=== PATIENT | male | born 1980 | race Caucasian/White ===

== ENCOUNTER 2023-11-02 08:43 | Emergency (ER) | payer OTHER, SELFPAY ==
--- NOTE | ~2023-11-02 | XR_ITS ---
EXAMINATION: XR elbow RT min 3V DATE: 11/02/2023 09:19 INDICATION: Right elbow injury and pain. TECHNIQUE: 4 views of right elbow were obtained. COMPARISON: None. FINDINGS: Bone alignment is normal. No fracture. Joint spaces are normal. No elbow joint effusion. IMPRESSION: 1. No fracture. Reviewed, dictated and finalized at location A. IMPRESSION: 1. No fracture.
--- NOTE | ~2023-11-02 | XR_ITS ---
XR shoulder RT min 2V 11/02/2023 09:19 INDICATION: Right shoulder pain PROCEDURE: 4 views right shoulder COMPARISON: No prior studies for comparison. FINDINGS: Fracture, dislocation or subluxation is not identified. The soft tissues appear within norm al limits. No foreign bodies are identified. IMPRESSION: 1: NO ACUTE BONE OR JOINT ABNORMALITY IDENTIFIED. Reviewed, dictated and finalized at location B.
[2023-11-02 08:46] VITALS: BP 160/91; PULSE 106; RESP 16; TEMP 36.4; O2SAT 98
[2023-11-02] MEDS: KETOROLAC 30 MG/ML VIAL (*BKC) IM (09:00)
--- NOTE | 2023-11-02 09:34 | ED.UPPEXIN ---
HPI - Extremity Injury (Upper) General Chief Complaint: Extremity Injury, Upper Stated Complaint: R ARM INJURY WHILE AT WORK Time Seen by Provider: 11/02/23 08:50 History of Present Illness HPI narrative: Patient is a 43-year-old male who presents ER with right shoulder and elbow pain. He was trying to started chain saw when the record got stuck and jerked his arm. He has pain with movements of the elbow and shoulder. No numbness or tingling down the arm. Node pain in the wrist or hand. He maintains normal range of motion at all the joints in the right upper extremity. No swelling. Related Data Allergies Allergy/AdvReac Type Severity Reaction Status Date / Time No Known Allergies Allergy Mild Verified 11/02/23 08:51 Review of Systems Constitutional: Constitutional: Reports no additional constitutional complaints Musculoskeletal: Musculoskeletal: Denies back pain, Reports arthralgias, Denies joint swelling and Denies muscle cramps Integumentary/Breasts: Skin/Breast: Reports system reviewed and no additional complaints, except as docu Neurologic: Reports system reviewed and no additional complaints, except as documented [facility] Past Medical History Medical History (Updated 11/02/23 @ 09:38 by Rodrick Andrew MD) Diabetes Hypertension Exam Narrative: GENERAL: Well-appearing, well-nourished, and in no acute distress. HEAD: Normocephalic, atraumatic. ENT: Mucous membranes moist. CHEST: Clear to auscultation. No respiratory distress. HEART: Regular rate and rhythm. Normal peripheral pulses. EXTREMITIES: Normal range of motion. No edema. Mild tenderness right radial head. Additional tenderness anterior shoulder joint line as well as posterior right shoulder lateral to the scapula. SKIN: Warm, dry, no rash. NEURO: Alert and oriented x3. PSYCH: Normal mood and affect. Course Vital Signs Vital signs: Vital Signs Temperature 97.5 F L 11/02/23 08:46 Pulse Rate 106 H 11/02/23 08:46 Respiratory Rate 16 11/02/23 08:46 Blood Pressure 160/91 H 11/02/23 08:46 Pulse Oximetry 98 11/02/23 08:46 Oxygen Delivery Room Air 11/02/23 08:46 Temperature 97.5 F L 11/02/23 08:46 Pulse Rate 106 H 11/02/23 08:46 Respiratory Rate 16 11/02/23 08:46 Blood Pressure 160/91 H 11/02/23 08:46 Pulse Oximetry 98 11/02/23 08:46 Oxygen Delivery Room Air 11/02/23 08:46 MDM - Extremity Injury (Upper) MDM Narrative Medical decision making narrative: -Course: Resting comfortably. Given pain medication. Issues. -Co-morbidities complicating care: Diabetes, hypertension -External Chart Review: None -Hx from independent Sources: Patient -Independent interpretation of studies: No acute fracture or other process on x-rays of the right shoulder and elbow. -Interventions: Toradol 30 mg IM x1. -Shared decision making / Disposition: Recommend discharge with NSAIDs and muscle relaxers. Follow-up with PCP should symptoms persist for either PT or MRI. Patient verbalized understanding. Imaging Data Radiologist's impression: ITS Impressions Elbow X-Ray 11/02/23 09:20 IMPRESSION: 1. No fracture. Shoulder X-Ray 11/02/23 09:20 IMPRESSION: 1: NO ACUTE BONE OR JOINT ABNORMALITY IDENTIFIED. Discharge Plan Discharge Clinical Impression: Sprain of right shoulder, Elbow sprain Patient Disposition: Home, Self-Care Condition: Stable Instructions: Elbow Sprain (ED), Shoulder Sprain (ED), P.R.I.C.E. Treatment (ED) Additional Instructions: Return to the ER if you suffer a new injury, you have fever over 100.4? F, you cannot keep down food water, or you have additional concerns. Follow-up with your primary care doctor for further treatment evaluation. Prescriptions: New cyclobenzaprine 10 mg tablet 10 mg PO TID PRN (Reason: muscle spasm) Qty: 20 0RF naproxen 375 mg tablet 375 mg PO BID Qty: 14 0RF Follow-up/Referrals: Dahlia,Paul Blair MD [Prim
[2023-11-02 09:48] VITALS: BP 141/85; PULSE 102; RESP 14; TEMP 36.4; O2SAT 97
== END 2023-11-02 09:49 | disposition home or self-care (01) ==
PROVIDERS: Emergency Provider Emergency Medicine; PCP Family Medicine
DX: S43.401A Unspecified sprain of right shoulder joint, initial encounter (principal); S53.401A Unspecified sprain of right elbow, initial encounter; E11.9 Type 2 diabetes mellitus without complications; I10 Essential (primary) hypertension; X50.0XXA Overexertion from strenuous movement or load, initial encounter
CPT/HCPCS: 73030; 73080; 96372; 99284; J1885

== ENCOUNTER 2023-11-11 21:40 | Inpatient (IN) | payer OTHER, SELFPAY ==
--- NOTE | ~2023-11-11 | CT_ITS ---
EXAMINATION: CT abdomen pelvis w con DATE: 11/12/2023 01:31 INDICATION: Abdominal pain. Nausea and vomiting. TECHNIQUE: Computed tomography (CT) of the abdomen and pelvis was performed with 100 mL Omnipaque 350 intravenous contrast. Automated exposure control and iterative reconstruction technique were employe d. The dose-length product was 483.61 mGy-cm. COMPARISON: None. FINDINGS: The visualized portions of the lung bases are clear without pneumonia or pleural effusion. The heart size is normal. No pericardial effusion. There is wall thickening in the distal esophagus. The liver, gallbladder, spleen, pancreas, adrenal glands, and kidneys are normal. There are no dilate d loops of bowel. The appendix is normal. There are no pathologically enlarged lymph nodes. There is no free intraperitoneal fluid. There is severe lower lumbar spondylosis. IMPRESSION: 1. Wall thickening of the distal esophagus, consistent with esophagitis. Reviewed, dictated and finalized at location E.
--- NOTE | ~2023-11-11 | XR_ITS ---
EXAMINATION: XR chest 2V DATE: 11/12/2023 01:42 INDICATION: Shortness of breath. TECHNIQUE: Frontal and lateral views of the chest were obtained. COMPARISON: CT abdomen and pelvis 11/12/2023 FINDINGS: There is no pneumonia, pleural effusion, or pneumothorax. The heart size is normal. IMPRESSION: 1. No acute cardiopulmonary disease. Reviewed, dictated and finalized at location E.
[2023-11-11 21:53] VITALS: BP 98/69; PULSE 120; RESP 20; TEMP 36.4; O2SAT 99
--- NOTE | 2023-11-11 21:59 | ECG_ITS ---
Test Date: 2023-11-11 21:51:03 Measurements Intervals [place] Rate: 127 P: 71 [place]: 156 QRS: -68 QRSD: 104 T: 48 QT: 303 QTc: 441 Interpretive Statements SINUS TACHYCARDIA MARKED LEFT AXIS DEVIATION [QRS AXIS < -30] PATTERN CONSISTENT WITH PULMONARY DISEASE ST ELEVATION, PROBABLY EARLY REPOLARIZATION [ST ELEVATION WITH NORMALLY INFLECTED T WAVE] No previous ECG available for comparison Electronically Signed On 11-12-2023 13:43:06 CDT by Ankit Reyes M.D.
[2023-11-11 22:16] LABS: Basophils Absolute Auto 0.2 K/mm3 (0.0-0.1); Basophils Percent Auto 0.7 % (0.2-1.2); Eosinophils Percent Auto 0.2 % (0-4.4); Hematocrit 55.3 % (42.0-52.0); Hemoglobin 18.4 g/dL (14.0-18.0); Immature Granulocyte Absolute 0.67 K/mm3 (0.00-0.031); Lymphocytes Absolute Auto 2.22 K/mm3 (0.9-3.2); Lymphocytes Percent Auto 10.1 % (18.3-44.2); Mean Corpuscular HGB Conc 33.3 g/dl (32-36); Mean Corpuscular Volume 87.1 fl (80-100); Mean Platelet Volume 10.1 fl (7.4-10.4); Monocytes Absolute Auto 1.8 K/mm3 (0.1-0.6); Monocytes Percent Auto 8.2 % (2.6-8.5); Neutrophils Absolute Auto 17.2 K/mm3 (1.3-6.7); Neutrophils Percent Auto 77.8 % (45.5-73.1); Platelet Count Result 457 k/mm3 (150-375); Red Blood Count 6.35 M/mm3 (4.6-6.20); Red Cell Distribution Width 12.4 % (11.5-14.5); White Blood Count 22.1 K/mm3 (4.5-10.0)
[2023-11-11 22:23] LABS: Alanine Aminotransferase 31 U/L (6-50); Albumin Level 5.4 g/dL (3.5-5.1); Alkaline Phosphatase 91 U/L (38-126); Aspartate Amino Transferase 29 U/L (17-59); Bilirubin,Total 0.6 mg/dL (0.2-1.3); Blood Urea Nitrogen 27 mg/dL (9-20); Calcium 10.4 mg/dL (8.4-10.2); Carbon Dioxide < 5 mmol/L (22-30); Chloride 90 mmol/L (98-107); Estimated CRCL calculation 70 ml/min; Estimated Glomerular Filt Rate 60; Glucose 362 mg/dL (65-110); Lipase 102 U/L (23-300); Potassium 5.1 mmol/L (3.4-5.0); Sodium 134 mmol/L (137-145)
[2023-11-12] VITALS (18 sets, daily range): BP systolic 85–135; BP diastolic 53–73; PULSE 98–126; RESP 12–24; TEMP 36.5–36.9; O2SAT 97–100; BMI 25.7
--- NOTE | 2023-11-12 00:32 | ED.NAVMDI ---
HPI - Nausea/Vomiting/Diarrhea General Chief complaint: Nausea/Vomiting/Diarrhea <Susy Pizarro PA-C - Last Filed: 11/12/23 01:57> Stated complaint: vomiting <Susy Pizarro PA-C - Last Filed: 11/12/23 01:57> Time Seen by Provider: 11/12/23 00:13 <Susy Pizarro PA-C - Last Filed: 11/12/23 01:57> History of Present Illness HPI Narrative: 43-year-old male with a history of hyperlipidemia, diabetes and history of gastric ulcers presents to the emergency department for epigastric pain that radiates into his chest and throat since yesterday with associated nausea and vomiting. Patient states he has been vomiting looks like coffee-ground . He reports associated shortness of breath. Denies fever, dysuria hematuria, diarrhea. He denies melena or hematochezia. States he drinks 3 12 packs a week. Denies history of liver disease or esophageal varices. Denies history of alcohol withdrawal. Last drink was 10pm last night. Denies history of alcohol withdrawal. <Susy Pizarro PA-C - Last Filed: 11/12/23 01:57> Related Data Allergies/Adverse reactions: Allergies Allergy/AdvReac Type Severity Reaction Status Date / Time No Known Allergies Allergy Mild Verified 11/02/23 08:51 <Susy Pizarro PA-C - Last Filed: 11/12/23 01:57> Review of Systems Review of Systems: All systems reviewed & are unremarkable except as noted in HPI and below <Susy Pizarro PA-C - Last Filed: 11/12/23 01:57> PMFSH Past Medical History Medical History: Medical History Diabetes Hypertension <DAMEON Hawkins Last Filed: 11/12/23 01:57> Exam Narrative: GENERAL: Ill-appearing, well-nourished, and in no acute distress. HEAD: Normocephalic, atraumatic. EYES: PERRLA and EOMI. ENT: Nares clear, no rhinorrhea or epistaxis. Mucous membranes moist. NECK: Supple. CHEST: Clear to auscultation. No respiratory distress. HEART: Regular rate and rhythm. No murmur heard. Normal peripheral pulses. ABDOMEN: Quiet bowel sounds. Abdomen soft with tenderness in epigastrium. No rebound, guarding or rigidity. No CVA tenderness. EXTREMITIES: Normal range of motion. No edema. SKIN: Warm, dry, no rash. NEURO: No focal deficits. Alert and oriented x3 <Susy Pizarro PA-C - Last Filed: 11/12/23 01:57> Course ADAPTIVE PHYSICAL EDUCATOR/PA Physician Supervision I agree with midlevel documentation; I performed the medical decision making component of this evaluation. CT without acute abnormality. Admission to ICU <Ella Jara MD - Last Filed: 11/12/23 03:32> Vital Signs Vital signs: Vital Signs Temperature 97.6 F 11/11/23 21:53 Pulse Rate 120 H 11/11/23 21:53 Respiratory Rate 20 11/11/23 21:53 Blood Pressure 98/69 L 11/11/23 21:53 Pulse Oximetry 99 11/11/23 21:53 Oxygen Delivery Room Air 11/11/23 21:53 Temperature 97.6 F 11/11/23 21:53 Pulse Rate 100 11/12/23 01:16 Respiratory Rate 20 11/12/23 01:16 Blood Pressure 112/65 11/12/23 01:16 Pulse Oximetry 98 11/12/23 01:16 Oxygen Delivery Room Air 11/11/23 21:53 <Susy Pizarro PA-C - Last Filed: 11/12/23 01:57> Vital Signs Temperature 97.6 F 11/11/23 21:53 Pulse Rate 120 H 11/11/23 21:53 Respiratory Rate 20 11/11/23 21:53 Blood Pressure 98/69 L 11/11/23 21:53 Pulse Oximetry 99 11/11/23 21:53 Oxygen Delivery Room Air 11/11/23 21:53 Temperature 97.6 F 11/11/23 21:53 Pulse Rate 100 11/12/23 01:16 Respiratory Rate 20 11/12/23 01:16 Blood Pressure 112/65 11/12/23 01:16 Pulse Oximetry 98 11/12/23 01:16 Oxygen Delivery Room Air 11/11/23 21:53 <Ella Jara MD - Last Filed: 11/12/23 03:32> MDM - Nausea/Vomiting/Diarrhea MDM Narrative Medical decision making narrative: 43-year-old male with history of hyperlipidemia, diabetes, reported gastric ulcers presents to emergency department for e
[2023-11-12 00:37] LABS: Add Urine Microscopic? YES; Appearance Urine Clear (Clear); Bacteria Urine None Seen /hpf; Bilirubin Urine Negative (Negative); Blood Urine Negative (Negative); Color Urine Yellow (Yellow); Glucose Urine UA 3+ mg/dL (Negative); Hyaline Casts Urine Present /lpf; Ketones Urine 2+ mg/dL (Negative); Leukocyte Esterase Ur Negative LEU/UL (Negative); Need Manual Microscopic Reviewed; Nitrate Urine Negative (Negative); Non Pathogenic Casts >20; Protein Urine 1+ mg/dL (Negative); RBC Urine 0-2 /hpf (0-2); Squamous Epithelial Cell Urine None Seen /hpf (Few); Urobilinogen Urine 0.2 mg/dL (<2.0); WBC Urine 0-5 /hpf (0-3)
[2023-11-12] MEDS: LACTATED RINGERS 1,000 ML 999 ML IV CONT ×3 (00:57→01:50)
--- NOTE | 2023-11-12 00:57 | ECG_ITS ---
Measurements Intervals [place] Rate: 114 P: 62 [place]: 161 QRS: 267 QRSD: 106 T: 33 QT: 336 QTc: 465 Interpretive Statements SINUS TACHYCARDIA INDETERMINATE AXIS Evidence of previous inferior infarction early repolarization abnormal ECG Compared to ECG 11/11/2023 21:51:03 no difference Electronically Signed On 11-13-2023 12:19:02 CDT by Miles LANGSTON
[2023-11-12] MEDS: ONDANSETRON INJ 4 MG/2 ML VIAL IV PUSH (00:58)
[2023-11-12] MEDS: PANTOPRAZOLE SODIUM IV 40 MG VIAL 80 MG IV PUSH (00:58)
[2023-11-12] MEDS: FAMOTIDINE 20 MG/2 ML VIAL IV PUSH (00:58)
[2023-11-12 00:59] LABS: Fractional Inspired Oxygen 21 %; HCO3 VBG 6.8 mEq/l (24.0-30.0); PO2 VBG 27.8 mmHg (35.0-45.0)
[2023-11-12 01:02] LABS: pH VBG 7.022 (7.300-7.400)
[2023-11-12] MEDS: INSULIN HUMAN REGULAR (*BKC) 100 UNITS/ML 13 UNITS IV PUSH (01:02)
[2023-11-12 01:03] LABS: Device ROOM AIR; PCO2 VBG 26.8 mmHg (42.0-48.0)
[2023-11-12 01:09] LABS: Glucose Point of Care 472 mg/dl (65-105)
[2023-11-12 01:11] LABS: Lactic Acid Reflex 3.1 mmol/L (0.7-2.0)
[2023-11-12 01:12] LABS: INR 1.1; Partial Thromboplastin Time 30.4 Seconds (22.3-36.8); Prothrombin Time 14.2 Seconds (11.1-14.7)
[2023-11-12 01:14] LABS: Hemoglobin A1C 12.9 % (<5.7)
[2023-11-12 01:22] LABS: Blood Urea Nitrogen 34 mg/dL (9-20); Calcium 10.1 mg/dL (8.4-10.2); Carbon Dioxide < 5 mmol/L (22-30); Chloride 86 mmol/L (98-107); Estimated CRCL calculation 44 ml/min; Estimated Glomerular Filt Rate 35; Glucose 520 mg/dL (65-110); Potassium 5.9 mmol/L (3.4-5.0); Sodium 132 mmol/L (137-145)
[2023-11-12 01:26] LABS: Troponin I < 0.012 ng/mL (0.000-0.034)
--- NOTE | 2023-11-12 01:31 | PM.IMHP ---
H&P: HPI History of Present Illness Date/Time: 11/12/23 01:31 Chief Complaint: n/v/epigastric pain Narrative: this is a 43-year-old with past medical history significant for type diabetes mellitus control be with metformin for the last 20 years, recent shoulder injury started on Solu pack comes to the emergency room due to nausea vomiting heartburn abdominal pain that started roughly a day before patient states that he has been his usual state of health although was feeling dehydrated Review of Systems Review of Systems: n/v/epigastric pain PMFSH Past Medical History Medical History Diabetes Hypertension Meds Home Medications and Allergies Home Medications Medication Instructions Recorded Confirmed Type cyclobenzaprine 10 mg tablet 10 mg PO TID PRN muscle spasm #20 11/02/23 Rx tabs naproxen 375 mg tablet 375 mg PO BID #14 tabs 11/02/23 Rx Allergies Allergy/AdvReac Type Severity Reaction Status Date / Time No Known Allergies Allergy Mild Verified 11/02/23 08:51 Vital Signs Vital Signs - 24 hr 11/11/23 21:53 11/12/23 00:54 11/12/23 00:55 Temperature 97.6 F Pulse Rate 120 H 116 H 119 H Respiratory Rate 20 13 24 H Blood Pressure 98/69 L 100/68 100/68 Pulse Oximetry 99 100 97 Oxygen Delivery Room Air 11/12/23 01:01 11/12/23 01:16 Temperature Pulse Rate 109 H 100 Respiratory Rate 20 20 Blood Pressure 98/58 L 112/65 Pulse Oximetry 97 98 Oxygen Delivery Exam Narrative: lying in stretcher Const: General: comfortable, no acute distress, well developed, alert, awake, ill appearing acutely and average body habitus Nutritional Appearance: average body habitus Orientation/consciousness: patient oriented x3 Other: dry mucosa HENMT: Head: normal to inspection, normocephalic and atraumatic Ears: hearing grossly normal bilaterally Face/Nose/Sinus: normal facial exam Face and sinus: normal facial exam Eyes: General: appearance normal, both eyes and all related structures Pupils: Equal, round and reactive pupils present EOM: EOMs intact bilaterally Neck: Neck: full ROM, no lymphadenopathy and no JVD Thyroid: thyroid normal Lymphatic: no lymphadenopathy noted Resp: Effort & Inspection: normal respiratory effort and able to speak in complete sentences Auscultation: clear to auscultation bilaterally Cardio: Jugular venous distension: no JVD Rate: regular rate Rhythm: regular rhythm Heart sounds: S1 normal heart sound present and S2 normal heart sound present GI: GI Palp: Yes Soft to palpation and Yes No hepatosplenomegaly present : General: Yes deferred Skin: Rashes: no rashes Wounds: no wounds Neuro: General: patient oriented x3 and CN's II-XI intact bilaterally Cranial nerves: Yes CN's II-XII intact bilaterally and Yes Equal, round and reactive pupils present Cognition (Neuro): normal cognition Speech: normal speech Gait exam (Neuro): Normal gait present Motor exam (neuro): 5/5 motor strength present throughout Extrem: General: normal to inspection, full ROM, no joint enlargement and no pedal edema H&P: Results Labs Labs: Short CBC 11/11/23 Range/Units 22:07 WBC 22.1 H (4.5-10.0) K/mm3 Hgb 18.4 H (14.0-18.0) g/dL Hct 55.3 H (42.0-52.0) % Plt Count 457 H (150-375) k/mm3 BMP 11/11/23 11/12/23 22:07 00:55 Sodium 134 L 132 L Potassium 5.1 H 5.9 H Chloride 90 L 86 L Carbon Dioxide < 5 L < 5 L BUN 27 H 34 H Creatinine 1.30 2.10 H Glucose 362 H 520 H* Calcium 10.4 H 10.1 Cardiac Enzymes 11/12/23 Range/Units 00:55 Troponin I < 0.012 (0.000-0.034) ng/mL Liver Function 11/11/23 Range/Units 22:07 Total Bilirubin 0.6 (0.2-1.3) mg/dL AST 29 (17-59) U/L ALT 31 (6-50) U/L Alkaline Phosphatase 91 (38-126) U/L Albumin 5.4 H (3.5-5.1) g/dL Urine 11/12/23 Range/Units 00:18 Urine Color Yellow (Y
[2023-11-12] MEDS: INSULIN HUMAN REGULAR (*BKC) 100 UNITS in SODIUM CHLORIDE 0.9% IV 99 ML 8.5 UNITS IV CONT (01:45)
[2023-11-12] MEDS: KCL 20 MEQ/SW 100 ML 100 ML 50 MEQ IVPB (01:48)
[2023-11-12 01:58] LABS: Magnesium 2.5 mg/dL (1.6-2.3); Phosphorus 12.9 mg/dL (2.5-4.5)
[2023-11-12 02:15] LABS: Hemoglobin 15.8 g/dL (14.0-18.0)
--- NOTE | 2023-11-12 02:15 | ECG_ITS ---
Test Date: 2023-11-12 02:15:13 Measurements Intervals [place] Rate: 120 P: 60 [place]: 175 QRS: 42 QRSD: 90 T: 13 QT: 310 QTc: 440 Interpretive Statements SINUS TACHYCARDIA EVIDENCE OF PREVIOUS INFERIOR INFARCTION EARLIER REPOLARIZATION ABNORMAL ECG Compared to ECG 11/12/2023 00:57:15 NO DIFFERENCE Electronically Signed On 11-13-2023 12:19:34 CDT by Miles Starr M.D.
[2023-11-12 02:49] LABS: Glucose Point of Care 381 mg/dl (65-105)
[2023-11-12 03:53] LABS: Glucose Point of Care 225 mg/dl (65-105)
[2023-11-12 03:58] LABS: Reflex Lactic Acid Yes or No Add Lactic
--- NOTE | 2023-11-12 04:16 | PC.NURSE ---
per verbal order from provider Dr. Galeana, pt to receive dextrose 5% with NS at 125 mls/ hour. this rn used closed loop communication to confirm rate/ dose/ time/ patient/ medication. per insulin titration protocol rate change for insulin infusion to be decreased by 50%. Pt titration now 5.75mls/ hour. rate change confirmed with 2nd RN Mary Turpin. Provider Dr. Galeana confirmed rate change and medication administration.
[2023-11-12 04:38] LABS: Anion Gap 25 mmol/L (4-12); Blood Urea Nitrogen 31 mg/dL (9-20); Calcium 9.4 mg/dL (8.4-10.2); Carbon Dioxide 13 mmol/L (22-30); Chloride 94 mmol/L (98-107); Estimated CRCL calculation 82 ml/min; Estimated Glomerular Filt Rate > 60; Glucose 180 mg/dL (65-110); Lactic Acid 2.2 mmol/L (0.7-2.0); Potassium 4.4 mmol/L (3.4-5.0); Sodium 132 mmol/L (137-145)
[2023-11-12 04:50] LABS: Glucose Point of Care 183 mg/dl (65-105)
[2023-11-12] MEDS: KCL 20 MEQ/D5/0.45% SOD CHL 1,000 ML 150 ML IV CONT ×3 (04:54→19:57)
[2023-11-12] MEDS: SODIUM CHLORIDE 0.9% IV 1,000 ML 999 ML IV CONT ×2 (05:20→07:53)
--- NOTE | 2023-11-12 05:30 | ADMGEN ---
This patient, Sly Conklin, was admitted to Intensive Care Unit-5. Patient/family oriented to hospital policies and general routines including ID bracelet, bed and alarms, visiting hours, pain management, procedures, bathroom and other care routines, personal items, smoking policy, room service/diet, and visiting hours. Information on how to activate the Rapid Response Team has been discussed. Patient/Family are encouraged to report perceived risks to care and to ask questions if they do not understand what they are told or what they should do.
[2023-11-12 05:49] LABS: Glucose Point of Care 171 mg/dl (65-105)
[2023-11-12 06:52] LABS: Glucose Point of Care 193 mg/dl (65-105)
[2023-11-12 07:57] LABS: Glucose Point of Care 165 mg/dl (65-105)
--- NOTE | 2023-11-12 08:11 | WPDCNINT ---
Assessment and Plan Assessment and plan (1) DKA, type 2: Qualifiers: Diabetes mellitus complication detail: without coma Qualified Code(s): E11.10 - Type 2 diabetes mellitus with ketoacidosis without coma Code(s): E11.10 - Type 2 diabetes mellitus with ketoacidosis without coma Status: Acute Assessment and Plan: Patient presented with nausea, vomiting, abdominal pain, decreased p.o. intake for solids and liquid x2 days, polyuria -in the ED patient was found to be in diabetic ketoacidosis, received a total of 3 L IV fluid bolus and started on insulin infusion per DKA protocol -early this morning patient received another IV fluid bolus for borderline high hypotension -patient remains tachycardic in the 110 -120s this morning, will give additional IV fluid bolus as he has not made any urine -continue insulin infusion as anion gap remains elevated -transition to long-acting insulin and sliding scale insulin -will have dietitian and family educator evaluate the patient -hemoglobin A1c 12.9 this admission, patient has uncontrolled diabetes (2) Abdominal pain, epigastric: Code(s): R10.13 - Epigastric pain Status: Acute Assessment and Plan: Patient presented with epigastric pain, CT scan of the abdomen showed esophageal wall thickening consistent with esophagitis -will start on Protonix -could be related to alcohol use (3) Nausea & vomiting: Qualifiers: Vomiting type: unspecified Qualified Code(s): R11.2 - Nausea with vomiting, unspecified Code(s): R11.2 - Nausea with vomiting, unspecified Status: Acute Assessment and Plan: Likely related to diabetic ketoacidosis, metabolic acidosis -resolved with improvement in acidosis (4) Acute kidney injury: Code(s): N17.9 - Acute kidney failure, unspecified Status: Acute Assessment and Plan: Acute kidney injury likely related to hypovolemia, nausea, vomiting. Creatinine 2.10 on admission Adequately fluid-resuscitated -creatinine down to 0.8 this morning -continue maintenance IV fluids per DKA protocol -continue to monitor renal function, electrolytes and urine output (5) Lactic acidosis: Code(s): E87.20 - Acidosis, unspecified Status: Acute Assessment and Plan: Lactic acidosis resolved likely related to hypovolemia, decreased perfusion, borderline hypotension -continue to monitor (6) Alcohol use: Code(s): Z78.9 - Other specified health status Status: Acute Assessment and Plan: Alcohol use/abuse, patient drinks 3-1/2 pack of beers weekly -will monitor for alcohol withdrawal Plan DVT prophylaxis: SCDs, no chemoprophylaxis as patient had coffee-ground emesis Stress ulcer prophylaxis: Protonix IV q.12 hours Nutrition: Ice chips only for now. Once patient is transition to long-acting insulin and sliding scale insulin, with required diabetic diet Code Status: Full code Critical Care Time Spent: 48 minutes Discussed with patient updated with his condition and plan of care. I answered all questions Due to a high probability of clinically significant, life threatening deterioration, the patient required my highest level of preparedness to intervene emergently and I personally spent this critical care time directly and personally managing the patient. This critical care time included obtaining a history; examining the patient; pulse oximetry; ordering and review of studies; arranging urgent treatment with development of a management plan; evaluation of patient's response to treatment; frequent reassessment; and discussions with other providers. It was exclusive of separately billable procedures and treating other patients and teaching time. Please see Assessment and Plan section and the rest of the note for further information on patient assessment and treatment This dictation may have been done utilizing a voice recognition system. Attempts have been made to corre
[2023-11-12 08:24] LABS: Anion Gap 19 mmol/L (4-12); Blood Urea Nitrogen 25 mg/dL (9-20); Calcium 8.6 mg/dL (8.4-10.2); Carbon Dioxide 15 mmol/L (22-30); Chloride 96 mmol/L (98-107); Estimated CRCL calculation 110 ml/min; Estimated Glomerular Filt Rate > 60; Glucose 172 mg/dL (65-110); Potassium 4.7 mmol/L (3.4-5.0); Sodium 130 mmol/L (137-145)
[2023-11-12 08:30] LABS: MRSA (PCR) NOT DETECTED (NOT DETECTE)
[2023-11-12 08:44] LABS: Basophils Absolute Auto 0.1 K/mm3 (0.0-0.1); Basophils Percent Auto 0.4 % (0.2-1.2); Eosinophils Percent Auto 0.1 % (0-4.4); Hematocrit 42.8 % (42.0-52.0); Hemoglobin 14.6 g/dL (14.0-18.0); Immature Granulocyte Absolute 0.34 K/mm3 (0.00-0.031); Immature Granulocyte Percent A 2.2 % (0-0.5); Lymphocytes Absolute Auto 1.42 K/mm3 (0.9-3.2); Lymphocytes Percent Auto 9.1 % (18.3-44.2); Mean Corpuscular HGB Conc 34.1 g/dl (32-36); Mean Corpuscular Hemoglobin 29.4 pg (26-34); Mean Corpuscular Volume 86.1 fl (80-100); Mean Platelet Volume 9.9 fl (7.4-10.4); Monocytes Absolute Auto 1.9 K/mm3 (0.1-0.6); Monocytes Percent Auto 12.1 % (2.6-8.5); Neutrophils Absolute Auto 11.9 K/mm3 (1.3-6.7); Neutrophils Percent Auto 76.1 % (45.5-73.1); Platelet Count Result 300 k/mm3 (150-375); Red Blood Count 4.97 M/mm3 (4.6-6.20); Red Cell Distribution Width 12.6 % (11.5-14.5); White Blood Count 15.6 K/mm3 (4.5-10.0)
[2023-11-12] MEDS: PANTOPRAZOLE SODIUM IV 40 MG VIAL IV PUSH ×2 (08:51→20:02)
[2023-11-12 08:55] LABS: Glucose Point of Care 158 mg/dl (65-105)
[2023-11-12 10:05] LABS: Glucose Point of Care 144 mg/dl (65-105)
[2023-11-12 11:06] LABS: Glucose Point of Care 161 mg/dl (65-105)
[2023-11-12 12:08] LABS: Glucose Point of Care 157 mg/dl (65-105)
[2023-11-12 12:30] LABS: Anion Gap 17 mmol/L (4-12); Blood Urea Nitrogen 18 mg/dL (9-20); Calcium 8.3 mg/dL (8.4-10.2); Carbon Dioxide 16 mmol/L (22-30); Chloride 98 mmol/L (98-107); Estimated CRCL calculation 125 ml/min; Estimated Glomerular Filt Rate > 60; Glucose 168 mg/dL (65-110); Potassium 4.5 mmol/L (3.4-5.0); Sodium 131 mmol/L (137-145)
[2023-11-12 13:03] LABS: Glucose Point of Care 164 mg/dl (65-105)
--- NOTE | 2023-11-12 13:32 | PM.IMPN ---
Progress Note: A&P Assessment and Plan (1) DKA, type 2: Qualifiers: Diabetes mellitus complication detail: without coma Qualified Code(s): E11.10 - Type 2 diabetes mellitus with ketoacidosis without coma Code(s): E11.10 - Type 2 diabetes mellitus with ketoacidosis without coma Status: Acute (2) Abdominal pain, epigastric: Code(s): R10.13 - Epigastric pain Status: Acute (3) Nausea & vomiting: Qualifiers: Vomiting type: unspecified Qualified Code(s): R11.2 - Nausea with vomiting, unspecified Code(s): R11.2 - Nausea with vomiting, unspecified Status: Acute (4) Acute kidney injury: Code(s): N17.9 - Acute kidney failure, unspecified Status: Acute (5) Lactic acidosis: Code(s): E87.20 - Acidosis, unspecified Status: Acute (6) Alcohol use: Code(s): Z78.9 - Other specified health status Status: Acute Plan This is a 43-year-old man with past medical history of type 2 diabetes controlled form for last 20 years recent shoulder surgery treat Solu Medrol comes with nausea vomiting heartburn and abdominal pain about a day and not feeling well. Denies any urinary symptoms. He drinks 312 pack a week. Weight. Drank night. Was hypotensive 98/69 with tachycardia and 120s. Laboratory workup showed WBC count of concentration hyponatremia 132 hyperkalemia 5.9 bicarb less than 5 creatinine of 2.46435 lactic patient diagnosed with DKA and was started on IV fluid resuscitation along with insulin drip. Patient was admitted to the ICU for further treatment. Continues on ICU DKA protocol A1c 12.[address] abdomen pelvis showed esophageal wall thickening started on Protonix. Code be related to call use SG improved with IV fluid resuscitation. Lactic acid resolved Alcohol use disorder Hyperlipidemia Hypertension DVT prophylaxis SCDs Code status full code Subjective Date/time seen: 11/12/23 13:32 Interval history: Feeling better. Epigastric pain has improved. No nausea vomiting. On insulin drip and IV fluid. Review of Systems Review of Systems: All systems reviewed & are unremarkable except as noted in HPI and below Exam Narrative: General: Pleasant gentleman in no acute distress HEENT:? Pupils equal and reactive, sclera is clear, moist oral mucosa Neck:? Supple Respiratory:? Clear to auscultation bilaterally, no wheezing, adequate air entry Cardiac:? S1-S2 is normal, sinus tachycardia Abdomen:? Soft, nontender, nondistended, normoactive bowel sounds Extremities:? No edema, palpable pedal pulses Neuro:? Patient is awake, alert oriented x3, answers to questions appropriately and follows simple commands in all extremities Skin:? Warm and dry Psych:? Normal mentation and affect Objective Data Vital Signs Vital Signs: Vital Signs - 24 hr 11/11/23 21:53 11/12/23 00:54 11/12/23 00:55 Temperature 97.6 F Pulse Rate 120 H 116 H 119 H Pulse Rate [Monitor] Respiratory Rate 20 13 24 H Blood Pressure 98/69 L 100/68 100/68 Pulse Oximetry 99 100 97 Oxygen Delivery Room Air 11/12/23 01:01 11/12/23 01:16 11/12/23 02:59 Temperature Pulse Rate 109 H 100 126 H Pulse Rate [Monitor] Respiratory Rate 20 20 17 Blood Pressure 98/58 L 112/65 104/73 Pulse Oximetry 97 98 100 Oxygen Delivery 11/12/23 03:01 11/12/23 04:41 11/12/23 04:30 Temperature 98.2 F Pulse Rate 112 H 117 H Pulse Rate [Monitor] 117 H Respiratory Rate 20 24 H Blood Pressure 108/59 L 85/53 L Pulse Oximetry 100 97 Oxygen Delivery 11/12/23 06:00 11/12/23 06:00 11/12/23 04:30 Temperature 98.4 F Pulse Rate 112 H 107 H 117 H Pulse Rate [Monitor] Respiratory Rate 20 Blood Pressure 103/60 Pulse Oximetry 99 Oxygen Delivery 11/12/23 04:30 11/12/23 08:00 11/12/23 08:00 Temperature 97.7 F Pulse Rate 104 H 107 H Pulse Rate [Monitor] Respiratory Rate 19 Blood Pressure 119/64 Pulse Oximet
[2023-11-12 14:04] LABS: Glucose Point of Care 176 mg/dl (65-105)
[2023-11-12 15:02] LABS: Glucose Point of Care 171 mg/dl (65-105)
[2023-11-12 16:04] LABS: Glucose Point of Care 165 mg/dl (65-105)
[2023-11-12 16:29] LABS: Hematocrit 42.3 % (42.0-52.0); Hemoglobin 14.6 g/dL (14.0-18.0)
[2023-11-12 16:40] LABS: Anion Gap 15 mmol/L (4-12); Blood Urea Nitrogen 14 mg/dL (9-20); Calcium 8.4 mg/dL (8.4-10.2); Carbon Dioxide 19 mmol/L (22-30); Chloride 98 mmol/L (98-107); Estimated CRCL calculation 125 ml/min; Estimated Glomerular Filt Rate > 60; Glucose 175 mg/dL (65-110); Potassium 4.6 mmol/L (3.4-5.0); Sodium 132 mmol/L (137-145)
[2023-11-12 17:12] LABS: Glucose Point of Care 176 mg/dl (65-105)
[2023-11-12 18:04] LABS: Glucose Point of Care 168 mg/dl (65-105)
[2023-11-12 19:18] LABS: Glucose Point of Care 164 mg/dl (65-105)
[2023-11-12 20:01] LABS: Glucose Point of Care 155 mg/dl (65-105)
[2023-11-12 20:48] LABS: Hematocrit 41.9 % (42.0-52.0); Hemoglobin 14.5 g/dL (14.0-18.0)
[2023-11-12 21:02] LABS: Glucose Point of Care 149 mg/dl (65-105)
--- NOTE | 2023-11-12 21:02 | ECG_ITS ---
Test Date: 2023-11-12 00:57:15 Measurements Intervals [place] Rate: 114 P: 62 [place]: 161 QRS: 267 QRSD: 106 T: 33 QT: 336 QTc: 465 Interpretive Statements SINUS TACHYCARDIA INDETERMINATE AXIS Evidence of previous inferior infarction early repolarization abnormal ECG Compared to ECG 11/11/2023 21:51:03 no difference Electronically Signed On 11-13-2023 12:19:02 CDT by Miles Starr M.D.
[2023-11-12 21:04] LABS: Anion Gap 15 mmol/L (4-12); Blood Urea Nitrogen 12 mg/dL (9-20); Calcium 8.5 mg/dL (8.4-10.2); Carbon Dioxide 21 mmol/L (22-30); Chloride 96 mmol/L (98-107); Estimated CRCL calculation 144 ml/min; Estimated Glomerular Filt Rate > 60; Glucose 169 mg/dL (65-110); Potassium 4.7 mmol/L (3.4-5.0); Sodium 132 mmol/L (137-145)
--- NOTE | 2023-11-12 21:11 | ECG_ITS ---
Test Date: 2023-11-12 21:11:04 Measurements Intervals [place] Rate: 96 P: 20 MO: 172 QRS: -26 QRSD: 96 T: 7 QT: 342 QTc: 432 Interpretive Statements SINUS RHYTHM INFERIOR MYOCARDIAL INFARCTION [40+ ms Q WAVE AND/OR ST/T ABNORMALITY IN II/aVF], PROBABLY OLD INTERPRETATION BASED ON A DEFAULT AGE OF 40 YEARS Electronically Signed On 11-14-2023 13:46:21 CDT by Jessica Mcmanus M.D. Compared to ECG 11/12/2023 02:15:13 Sinus tachycardia no longer present Myocardial infarct finding still present
[2023-11-12] MEDS: HYDROcodone/acetaminophen (*CRX) 5-325 MG TABLET 1 TAB PO (21:40)
[2023-11-12 22:01] LABS: Glucose Point of Care 164 mg/dl (65-105)
[2023-11-12 23:00] LABS: Glucose Point of Care 160 mg/dl (65-105)
[2023-11-13] VITALS (8 sets, daily range): BP systolic 115–137; BP diastolic 68–109; PULSE 80–106; RESP 12–21; TEMP 36.6–37.1; O2SAT 82–99; BMI 25.6
[2023-11-13 00:02] LABS: Glucose Point of Care 171 mg/dl (65-105)
[2023-11-13 00:58] LABS: Anion Gap 9 mmol/L (4-12); Blood Urea Nitrogen 10 mg/dL (9-20); Calcium 8.4 mg/dL (8.4-10.2); Carbon Dioxide 25 mmol/L (22-30); Chloride 98 mmol/L (98-107); Estimated CRCL calculation 169 ml/min; Estimated Glomerular Filt Rate > 60; Glucose 150 mg/dL (65-110); Potassium 4.4 mmol/L (3.4-5.0); Sodium 132 mmol/L (137-145)
[2023-11-13] MEDS: INSULIN GLARGINE (*BKC) 100 UNITS/ML 20 UNITS SUB-Q (02:02)
[2023-11-13] MEDS: KCL 20 MEQ/D5/0.45% SOD CHL 1,000 ML 150 ML IV CONT (02:03)
[2023-11-13 02:08] LABS: Glucose Point of Care 153 mg/dl (65-105)
[2023-11-13 03:05] LABS: Glucose Point of Care 177 mg/dl (65-105)
[2023-11-13 04:03] LABS: Basophils Percent Auto 0.4 % (0.2-1.2); Eosinophils Absolute Auto 0.2 K/mm3 (0-0.3); Eosinophils Percent Auto 1.5 % (0-4.4); Hematocrit 40.1 % (42.0-52.0); Hemoglobin 13.8 g/dL (14.0-18.0); Immature Granulocyte Percent A 0.9 % (0-0.5); Lymphocytes Absolute Auto 1.62 K/mm3 (0.9-3.2); Lymphocytes Percent Auto 15.3 % (18.3-44.2); Mean Corpuscular HGB Conc 34.4 g/dl (32-36); Mean Corpuscular Hemoglobin 29.1 pg (26-34); Mean Corpuscular Volume 84.6 fl (80-100); Mean Platelet Volume 9.2 fl (7.4-10.4); Monocytes Absolute Auto 1.3 K/mm3 (0.1-0.6); Monocytes Percent Auto 11.9 % (2.6-8.5); Neutrophils Absolute Auto 7.4 K/mm3 (1.3-6.7); Platelet Count Result 224 k/mm3 (150-375); Red Blood Count 4.74 M/mm3 (4.6-6.20); Red Cell Distribution Width 12.6 % (11.5-14.5); White Blood Count 10.6 K/mm3 (4.5-10.0)
[2023-11-13 04:17] LABS: Alanine Aminotransferase 24 U/L (6-50); Albumin Level 3.5 g/dL (3.5-5.1); Alkaline Phosphatase 52 U/L (38-126); Anion Gap 11 mmol/L (4-12); Aspartate Amino Transferase 22 U/L (17-59); Bilirubin,Total 0.4 mg/dL (0.2-1.3); Blood Urea Nitrogen 9 mg/dL (9-20); Calcium 8.3 mg/dL (8.4-10.2); Carbon Dioxide 24 mmol/L (22-30); Chloride 98 mmol/L (98-107); Estimated CRCL calculation 144 ml/min; Estimated Glomerular Filt Rate > 60; Glucose 155 mg/dL (65-110); Magnesium 2.1 mg/dL (1.6-2.3); Phosphorus 2.7 mg/dL (2.5-4.5); Potassium 4.5 mmol/L (3.4-5.0); Sodium 133 mmol/L (137-145)
[2023-11-13 04:26] LABS: Lactic Acid Reflex < 0.5 mmol/L (0.7-2.0)
[2023-11-13 05:12] LABS: Glucose Point of Care 128 mg/dl (65-105)
[2023-11-13] MEDS: PANTOPRAZOLE SODIUM IV 40 MG VIAL IV PUSH (08:07)
[2023-11-13 08:08] LABS: Glucose Point of Care 122 mg/dl (65-105)
--- NOTE | 2023-11-13 09:29 | WPDINTPN ---
Progress Note: A&P Assessment and Plan (1) DKA, type 2: Qualifiers: Diabetes mellitus complication detail: without coma Qualified Code(s): E11.10 - Type 2 diabetes mellitus with ketoacidosis without coma Code(s): E11.10 - Type 2 diabetes mellitus with ketoacidosis without coma Status: Acute Assessment and Plan: Patient presented with nausea, vomiting, abdominal pain, decreased p.o. intake for solids and liquid x2 days, polyuria -in the ED patient was found to be in diabetic ketoacidosis, received a total of 3 L IV fluid bolus and started on insulin infusion per DKA protocol -patient received 2 more L of IV fluid bolus in the ICU on 11/11 -patient was transition to long-acting insulin and sliding scale insulin last night -started on diabetic diet -will have dietitian and window repairer evaluate the patient -hemoglobin A1c 12.9 this admission, patient has uncontrolled diabetes (2) Abdominal pain, epigastric: Code(s): R10.13 - Epigastric pain Status: Acute Assessment and Plan: Patient presented with epigastric pain, CT scan of the abdomen showed esophageal wall thickening consistent with esophagitis -continue Protonix -could be related to alcohol use (3) Nausea & vomiting: Qualifiers: Vomiting type: unspecified Qualified Code(s): R11.2 - Nausea with vomiting, unspecified Code(s): R11.2 - Nausea with vomiting, unspecified Status: Acute Assessment and Plan: Likely related to diabetic ketoacidosis, metabolic acidosis -RESOLVED (4) Acute kidney injury: Code(s): N17.9 - Acute kidney failure, unspecified Status: Acute Assessment and Plan: RESOLVED Acute kidney injury likely related to hypovolemia, nausea, vomiting. Creatinine 2.10 on admission Adequately fluid-resuscitated -creatinine down to 0.60 this morning -continue maintenance IV fluids per DKA protocol -continue to monitor renal function, electrolytes and urine output (5) Lactic acidosis: Code(s): E87.20 - Acidosis, unspecified Status: Acute Assessment and Plan: Lactic acidosis resolved likely related to hypovolemia, decreased perfusion, borderline hypotension -continue to monitor -RESOLVED (6) Alcohol use: Code(s): Z78.9 - Other specified health status Status: Acute Assessment and Plan: Alcohol use/abuse, patient drinks 3-1/2 pack of beers weekly -will monitor for alcohol withdrawal -deputy general counsel patient for cessation of alcohol use/abuse Plan DVT prophylaxis: SCDs, no chemoprophylaxis as patient had coffee-ground emesis Stress ulcer prophylaxis: Protonix IV q.12 hours Nutrition: diabetic diet Code Status: Full code Critical Care Time Spent: 31minutes Discussed with patient updated with his condition and plan of care. I answered all questions Patient may transfer out of the ICU Due to a high probability of clinically significant, life threatening deterioration, the patient required my highest level of preparedness to intervene emergently and I personally spent this critical care time directly and personally managing the patient. This critical care time included obtaining a history; examining the patient; pulse oximetry; ordering and review of studies; arranging urgent treatment with development of a management plan; evaluation of patient's response to treatment; frequent reassessment; and discussions with other providers. It was exclusive of separately billable procedures and treating other patients and teaching time. Please see Assessment and Plan section and the rest of the note for further information on patient assessment and treatment This dictation may have been done utilizing a voice recognition system. Attempts have been made to correct errors. However, there may be uncorrected grammatical, spelling, and recognitions errors present. Subjective Date/time seen: 11/13/23 09:29 Interval history: Reason for consult: Mami
[2023-11-13 11:55] LABS: Glucose Point of Care 163 mg/dl (65-105)
--- NOTE | 2023-11-13 13:21 | PM.DS ---
DS: Admitting Diagnosis Discharge Date 11/13/2023 Admitting Diagnosis DKA DS: Discharge Diagnosis Discharge Diagnosis (1) DKA, type 2: Qualifiers: Diabetes mellitus complication detail: without coma Qualified Code(s): E11.10 - Type 2 diabetes mellitus with ketoacidosis without coma Code(s): E11.10 - Type 2 diabetes mellitus with ketoacidosis without coma Status: Acute (2) Abdominal pain, epigastric: Code(s): R10.13 - Epigastric pain Status: Acute (3) Nausea & vomiting: Qualifiers: Vomiting type: unspecified Qualified Code(s): R11.2 - Nausea with vomiting, unspecified Code(s): R11.2 - Nausea with vomiting, unspecified Status: Acute (4) Acute kidney injury: Code(s): N17.9 - Acute kidney failure, unspecified Status: Acute (5) Lactic acidosis: Code(s): E87.20 - Acidosis, unspecified Status: Acute (6) Alcohol use: Code(s): Z78.9 - Other specified health status Status: Acute DS: Summary Hospital Course Hospital Course: This is a 43-year-old man with past medical history of type 2 diabetes controlled form for last 20 years recent shoulder surgery treat Solu Medrol comes with nausea vomiting heartburn and abdominal pain about a day and not feeling well. Denies any urinary symptoms. He drinks 3 12 pack beer a week. Drank a night before. Was hypotensive 98/69 with tachycardia and 120s. Laboratory workup showed WBC count of concentration hyponatremia 132 hyperkalemia 5.9 bicarb less than 5 creatinine of 2.1 and elevated lactic acid. Patient diagnosed with DKA and was started on IV fluid resuscitation along with insulin drip. Patient was admitted to the ICU for further treatment. Patient continued on ICU DKA protocol. Once gap was closed was transition to Lantus and lispro. Due to lactic acidosis and SG will hold metformin and DKA Farxiga will be held for now. 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 SG improved with IV fluid resuscitation. Lactic acid resolved KI resolved as well Alcohol use disorder counseled on limiting alcohol use Hyperlipidemia Hypertension DVT prophylaxis SCDs Code status full code Time Spent with Patient Time attestation: Total time spent providing and/or coordinating discharge services: 35 minutes Exam Narrative: General: Pleasant gentleman in no acute distress HEENT:? Pupils equal and reactive, sclera is clear, moist oral mucosa Neck:? Supple Respiratory:? Clear to auscultation bilaterally, no wheezing, adequate air entry Cardiac:? S1-S2 is normal, sinus tachycardia Abdomen:? Soft, nontender, nondistended, normoactive bowel sounds Extremities:? No edema, palpable pedal pulses Neuro:? Patient is awake, alert oriented x3, answers to questions appropriately and follows simple commands in all extremities Skin:? Warm and dry Psych:? Normal mentation and affect DS: Data Data Completed and Pending Labs on day of discharge: Labs from last 24 hours 11/13/23 11/13/23 11/13/23 11:46 08:06 05:10 WBC RBC Hgb Hct MCV MCH MCHC RDW Plt Count MPV Immature Gran % (Auto) Neut % (Auto) Lymph % (Auto) [place] % (Auto) Eos % (Auto) Baso % (Auto) Lymph # (Auto) [place] # (Auto) Eos # (Auto) Baso # (Auto) Abs Immat Gran (auto) Absolute Neuts (auto) Absolute Nucleated RBC Nucleated RBC % Sodium Potassium Chloride Carbon Dioxide Anion Gap BUN Creatinine Estim Creat Clear Calc Estimated GFR Glucose POC Capillary Glucose 163 H 122 H 128 H Lactic Acid Calcium Phosphorus Magnesium Total Bilirubin AST ALT Alkaline Phosphatase Total Protein Albumin 11/13/23 11/13/23 11/13/23 03:42 03:02 02:01 WBC 10.6 H RBC 4.74 Hgb 13.8 L Hct 40
--- NOTE | 2023-12-01 14:19 | PCCDE ---
12/01/23 Followed up with patient by phone. Saw outpatient RD yesterday. Is making dietary adjustments. Plans on making appt with Endo. Verbalizing he believes he's on the right path. Denies need for OP DSMT at this time. [place]
== END 2023-11-13 14:31 | disposition home or self-care (01) | DRG 638 ==
LOC: ANHED 11-12 03:32 → ANHICU 11-12 06:47
PROVIDERS: Internal Medicine; Physician Assistant; Admitting Provider Internal Medicine; Emergency Provider Emergency Medicine; PCP Family Medicine; Visit Provider Internal Medicine
DX: E11.10 Type 2 diabetes mellitus with ketoacidosis without coma (principal); N17.9 Acute kidney failure, unspecified; E78.5 Hyperlipidemia, unspecified; I10 Essential (primary) hypertension; E86.0 Dehydration; K20.90 Esophagitis, unspecified without bleeding; E87.5 Hyperkalemia; F10.90 Alcohol use, unspecified, uncomplicated
CPT/HCPCS: 36415; 71046; 74177; 80048; 80053; 81001; 82010; 82803; 82948; 83036; 83605; 83690; 83735; 84100; 84484; 85014; 85018; 85025; 85610; 85730; 87641; 93005; 96365; 96366; 96375; 99285; A9270; J1815; J2405; J2470; J3480; J7030; J7120; Q9967

== ENCOUNTER 2024-02-01 15:00 | Outpatient (RCR) | payer OTHER, SELFPAY ==
[2023-11-30 09:33] VITALS: BMI 26.0
[2023-11-30 10:22] VITALS: BMI 26.0
== END 2024-02-19 10:53 | disposition home or self-care (01) ==
LOC: ANHDMC 15:00
PROVIDERS: PCP Family Medicine; Visit Provider Family Medicine
DX: E11.9 Type 2 diabetes mellitus without complications (principal); Z71.3 Dietary counseling and surveillance; Z71.89 Other specified counseling
CPT/HCPCS: 97802